=== PATIENT | male | born 1950 | race Caucasian/White ===

== ENCOUNTER → 2020-12-10 | Emergency (ER) | payer OTHER ==
[~2020-12-10] VITALS: Ht 172.7 cm; Wt 73.5 kg
[~2020-12-10] MED LIST: CORTISPORIN EAR10 M1 OT; LOSARTAN POTASS50 MG PO; METFORMIN HCL500 M4 PO; OMEGA-3 ACID ETH1 GM PO; ZETIA10 MG PO
== END | disposition left against medical advice (07) ==
LOC: ER 08:38
DX: Z53.20 Procedure and treatment not carried out because of patient's decision for unspecified reasons (principal)